=== PATIENT | male | born 1935 | race Caucasian/White ===

== ENCOUNTER 2019-02-17 18:37 | Emergency (ER) | payer MEDICARE ==
[~2019-02-17] VITALS: Ht 175.3 cm; Wt 79.4 kg
[2019-02-17] MEDS ORDERED: NORVASC5 MG PO (18:52)
[2019-02-17] MEDS ORDERED: BUSPIRONE HCL5 MG PO (18:53)
[2019-02-17] MEDS ORDERED: PRILOSEC OTC20 MG PO (18:54)
[2019-02-17] MEDS ORDERED: GABAPENTIN400 MG PO (18:54)
--- NOTE | 2019-02-18 14:26 | EKG ---
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
== END 2019-02-17 21:11 | disposition home or self-care (01) ==
LOC: ED 18:37
DX: R55 Syncope and collapse (principal); I10 Essential (primary) hypertension; F41.9 Anxiety disorder, unspecified; Z85.46 Personal history of malignant neoplasm of prostate; Z79.899 Other long term (current) drug therapy
CPT/HCPCS: 80053; 81001; 83735; 84484; 85025; 93005; 93010; 99284-25